=== PATIENT | male | born 1990 | race American Indian/Alaskan Native ===

== ENCOUNTER 2019-09-25 10:07 | Emergency (ER) | payer SELFPAY ==
[2019-09-25 10:14] VITALS: BP 125/90
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
[2019-09-25] MEDS ORDERED: ONDANSETRON 4 MG ODT TAB PO STA (11:48)
== END 2019-09-25 12:30 | disposition home or self-care (01) ==
LOC: ED 10:07
DX: K52.9 Noninfective gastroenteritis and colitis, unspecified (principal); Z87.891 Personal history of nicotine dependence; Z79.899 Other long term (current) drug therapy
CPT/HCPCS: Q0162